=== PATIENT | female | born 1985 | race Caucasian/White ===

== ENCOUNTER 2020-07-10 11:27 | Emergency (ER) | payer OTHER, SELFPAY ==
[2020-07-10] VITALS (12 sets, daily range): BP systolic 120–131; BP diastolic 57–70; PULSE 55–81; RESP 10–20; TEMP 35.7; O2SAT 100
--- NOTE | ~2020-07-10 | CT_ITS ---
EXAMINATION: CT brain wo con EXAM DATE: 07/10/2020 13:41 INDICATION: Headache and confusion. TECHNIQUE: Spiral CT of the head was performed without contrast. Axial, coronal and sagittal images were reviewed. The dose-length product (DLP) for this examination was 605.33 mGy-cm. The exposure w as tailored according to patient size, and iterative reconstruction (ASIR) was used as additional dos e reduction technique. There is no prior study for comparison. FINDINGS: There is no acute intraparenchymal hemorrhage. No evidence of intraparenchymal brain mass lesion. No evidence of acute infarction. There is no mass effect or midline shift. The ventricles are normal in size. There are no extra-axial collections. There are no acute calvarial fractures. T he orbits are unremarkable. Soft tissue is unremarkable. The visualized sinuses and mastoid air flip ls are well aerated. IMPRESSION: 1. No acute intracranial findings. Reviewed, dictated and finalized at location A. [employer]
[2020-07-10 11:41] LABS: Glucose Point of Care 102 (65-105)
--- NOTE | 2020-07-10 12:33 | ED.GENADULT ---
HPI - General Adult General Chief complaint: Unspecified Stated complaint: lethargic, headache, confusion Time Seen by Provider: 07/10/20 11:59 History of Present Illness HPI narrative: 34 y/o female presents to the ED for confusion. History primarily provided by family member. They report that she has seemed confused for the past few weeks. She has been for getful. She cannot recall what day it is. She has had poor concentration. She has been sleeping considerably more and still tired while she is awake. Today she was returning home from her families house and she became lost. She has had frequent headaches, although she does not have a headache at this time. She does report more stress than usual. Related Data Allergies Allergy/AdvReac Type Severity Reaction Status Date / Time No Known Allergies Allergy Verified 07/10/20 12:38 Review of Systems Review of Systems: All systems reviewed & are unremarkable except as noted in HPI and below Constitutional: Constitutional: Reports fatigue, Denies fever(s) and Reports poor appetite Eyes: Eyes: Denies change in vision ENT: Reports headache(s) and Denies hearing loss Cardiovascular: Cardiovascular: Denies chest pain Respiratory: Respiratory: Denies dyspnea Gastrointestinal: Gastrointestinal: Denies abdominal pain, Denies nausea and Denies vomiting Musculoskeletal: Musculoskeletal: Denies back pain and Denies muscle weakness Neurologic: Denies Abnormal speech present, Reports confusion, Denies syncope, Denies numbness and Denies weakness Psychiatric: Psychiatric: Reports change in appetite PMFSH Past Medical History Medical History (Updated 07/11/20 @ 00:00 by Dirk Birmingham) Palpitations Social History Social History (Updated 07/10/20 @ 13:16 by Clifton Dodd MD) Smoking status: Never smoker Exam Const: General: healthy appearing, no acute distress and alert Orientation/consciousness: patient oriented x3 HENMT: Head: normal to inspection Ears: external ears normal Eyes: General: appearance normal, both eyes and all related structures Pupils: Equal, round and reactive pupils present Neck: Neck: normal visual inspection and no lymphadenopathy Chest: Chest palpation & inspection: no tenderness Resp: Effort & Inspection: normal respiratory effort Auscultation: clear to auscultation bilaterally, no rales, no rhonchi and no wheezes Cardio: Jugular venous distension: no JVD Rate: regular rate Rhythm: regular rhythm Heart sounds: no murmurs GI: Inspection: non-distended GI Palp: Yes Soft to palpation and No Tenderness to palpation present (GI) Skin: General skin exam: normal color Neuro: General: patient oriented x3 and moves all extremities Speech: normal speech Extrem: General: no edema Psych: Appearance: grossly normal and well kempt Mental Status: mental status grossly normal Affect: Sad affect present Attitude: cooperative Course Vital Signs Vital signs: Vital Signs Temperature 35.7 C L 07/10/20 11:32 Pulse Rate 73 07/10/20 11:32 Respiratory Rate 18 07/10/20 11:32 Blood Pressure 131/70 07/10/20 11:32 Pulse Oximetry 100 07/10/20 11:32 Temperature 35.7 C L 07/10/20 11:32 Pulse Rate 59 L 07/10/20 15:37 Respiratory Rate 11 L 07/10/20 15:37 Blood Pressure 120/64 07/10/20 14:31 Pulse Oximetry 100 07/10/20 11:32 Medical Decision Making MDM Narrative Medical decision making narrative: Work-up negative except for possible UTI. Symptoms most likely psychogenic in young otherwise health individual. She does admit to increased stress. Medical Records Medical records reviewed: Yes I reviewed the patient's medical records. Vital Signs Vital Signs: Vital Signs Temperature 35.7 C L 07/10/20 11:32 Pulse Rate 73 07/10/20 11:32 Respiratory Rate 18 07/10/20 11:32 Blood Pressure 131/70 07/10/20 11:32 Pulse Oximetry 100 07/10/20 11:32 Temperature 35.7 C L 07/10/20 11:32 Pulse R
[2020-07-10] MEDS: SODIUM CHLORIDE 0.9% IV 1,000 ML 999 ML IV CONT (12:37)
[2020-07-10 12:59] LABS: Basophils Percent Auto 0.5 % (0.2-1.2); Eosinophils Absolute Auto 0.1 K/mm3 (0-0.3); Eosinophils Percent Auto 1.2 % (0-4.4); Hematocrit 47.1 % (37.0-47.0); Hemoglobin 15.4 g/dL (12.0-15.0); Immature Granulocyte Absolute 0.02 K/mm3 (0.00-0.031); Immature Granulocyte Percent A 0.2 % (0-0.5); Lymphocytes Absolute Auto 2.74 K/mm3 (0.9-3.2); Lymphocytes Percent Auto 34.1 % (18.3-44.2); Mean Corpuscular HGB Conc 32.7 g/dl (32-36); Mean Corpuscular Hemoglobin 30.3 pg (26-34); Mean Corpuscular Volume 92.5 fl (80-100); Mean Platelet Volume 11.3 fl (7.4-10.4); Monocytes Absolute Auto 0.3 K/mm3 (0.1-0.6); Monocytes Percent Auto 4.2 % (2.6-8.5); Neutrophils Absolute Auto 4.8 K/mm3 (1.3-6.7); Neutrophils Percent Auto 59.8 % (45.5-73.1); Platelet Count Result 277 k/mm3 (150-375); Red Blood Count 5.09 M/mm3 (4.2-5.4); Red Cell Distribution Width 12.7 % (11.5-14.5)
[2020-07-10 13:17] LABS: Alanine Aminotransferase 28 U/L (4-35); Albumin Level 4.9 g/dL (3.5-5.1); Alkaline Phosphatase 76 U/L (38-126); Anion Gap 11 mmol/L (8-16); Aspartate Amino Transferase 28 U/L (14-36); Bilirubin,Total 0.7 mg/dL (0.2-1.3); Blood Urea Nitrogen 11 mg/dL (7-17); Carbon Dioxide 30 mmol/L (22-30); Chloride 102 mmol/L (98-107); Estimated CRCL calculation 83 ml/min; Estimated Glomerular Filt Rate > 60; Glucose 109 mg/dL (65-105); Potassium 3.6 mmol/L (3.4-5.0); Sodium 143 mmol/L (137-145)
--- NOTE | 2020-07-10 14:03 | ECG_ITS ---
Measurements Intervals [place] Rate: 75 P: 38 KS: 140 QRS: 46 QRSD: 93 T: 23 QT: 354 QTc: 397 Interpretive Statements SINUS RHYTHM BASELINE ARTIFACT- I, II, AVR, AVL, AVF, V3-V6 NORMAL ECG Electronically Signed On 07-10-2020 14:15:00 [employer]ISH[employer]VIS[employer] by Chris Muse D.O.
[2020-07-10 14:26] LABS: Add Urine Microscopic? YES; Appearance Urine Cloudy (Clear); Bacteria Urine Trace /hpf; Bilirubin Urine Negative (Negative); Blood Urine 1+ (Negative); Color Urine Yellow (Yellow); Glucose Urine UA Negative (Negative); Ketones Urine Negative (Negative); Leukocyte Esterase Ur 3+ LEU/UL (Negative); Mucus Urine Rare /lpf; Nitrate Urine Negative (Negative); Protein Urine Negative (Negative); Specific Grav Ur 1.011 (1.001-1.035); Squamous Epithelial Cell Urine Many /hpf (Few); Urobilinogen Urine Negative mg/dL (<2.0)
[2020-07-10 14:38] LABS: Amphetamine Screen Urine Negative (Negative); Barbiturate Screen Urine Negative (Negative); Benzodiazepines Screen Urine Negative (Negative); Cannabinoid Screen Urine Negative (Negative); Cocaine Screen Urine Negative (Negative); Methadone Screen Urine Negative (Negative); Opiate Screen Urine Negative (Negative); Phencyclidine Screen Urine Negative (Negative)
[2020-07-10] MEDS: NITROFURANTOIN MONOHYD MACROCR 100 MG CAP PO (14:46)
== END 2020-07-10 15:54 | disposition home or self-care (01) ==
PROVIDERS: Emergency Provider Emergency Medicine
DX: N39.0 Urinary tract infection, site not specified (principal); R53.81 Other malaise; R53.83 Other fatigue
CPT/HCPCS: 36415; 70450; 80053; 80307; 81001; 84443; 85025; 87086; 87088; 93005; 96360; 99284; A9270; J7030